=== PATIENT | female | born 1970 | race African-American/Black ===

== ENCOUNTER 2022-12-24 13:47 | Emergency (ER) | payer MEDICAID ==
[~2022-12-24] VITALS: Ht 170.2 cm; Wt 90.9 kg
[~2022-12-24 13:47] MED LIST: AMLO-257 PO; ASPI81 PO; METO25 PO
[2022-12-24 13:56] VITALS: TEMP 97.9
[2022-12-24] MEDS ORDERED: AmLODIPine BESYLATE 10 MG TABLET PO ONE (14:15)
[2022-12-24] MEDS ORDERED: ACETAMINOPHEN 500 MG TABLET PO ONE (14:15)
[2022-12-24 14:36] LABS: BASOPHILS % (AUTO) 0.9 % (0.0-2.0); EOSINOPHILS % (AUTO) 2.4 % (1.0-6.0); HEMATOCRIT 40.1 % (36-46); HEMOGLOBIN 13.2 g/dL (12.0-16.0); LYMPHOCYTES # (AUTO) 2.7 K/uL (1.0-4.8); LYMPHOCYTES % (AUTO) 35.1 % (22.0-44.0); MEAN CORPUSCULAR HEMOGLOBIN 29.1 pg (26.0-34.0); MEAN CORPUSCULAR HGB CONC 32.9 G/dL (31.0-37.0); MEAN CORPUSCULAR VOLUME 89 fL (80-100); MONOCYTES # (AUTO) 0.7 K/uL (0.1-1.0); MONOCYTES % (AUTO) 8.9 % (2.0-9.0); NEUTROPHILS % (AUTO) 52.7 % (40.0-70.0); PLATELET COUNT (AUTO) 419 K/uL (150-450); RED BLOOD CELL COUNT(AUTO) 4.53 MIL/uL (4.00-5.20); RED CELL DISTRIBUTION WIDTH 13.9 % (11.5-14.5); WHITE BLOOD COUNT (AUTO) 7.6 K/uL (4.5-11.0)
[2022-12-24 14:40] LABS: ANION GAP 12 mmol/L (8-16); CALCIUM, TOTAL 9.3 mg/dL (8.8-10.5); CARBON DIOXIDE 24 mmol/L (22-29); CHLORIDE 97 mmol/L (98-107); GLOMERULAR FILTR. RATE CALC > 60 mL/min (>60); GLUCOSE,RANDOM 115 mg/dL (70-110); POTASSIUM 3.7 mmol/L (3.5-5.1); SODIUM SERUM 133 mmol/L (136-145); UREA NITROGEN, BLOOD 17 mg/dL (7-18)
[2022-12-24 14:42] LABS: PROTHROMBIN TIME 10.4 SEC (9.4-11.6)
[2022-12-24 14:45] LABS: TROPONIN I-HIGH SENSITIVITY 6 ng/L (<51)
[2022-12-24 14:46] LABS: ALANINE AMINOTRANSFERASE 21 U/L (12-78); ALBUMIN 3.7 g/dL (3.4-5.0); ALKALINE PHOSPHATASE 109 U/L (46-116); ASPARTATE AMINOTRANSFERASE 24 U/L (15-37); TOTAL PROTEIN, SERUM 8.4 g/dL (6.4-8.2)
[2022-12-24 14:46] LABS: APPEARANCE,URINE CLEAR (CLEAR); BILIRUBIN,URINE NEGATIVE (NEGATIVE); COLOR,URINE COLORLESS (YELLOW); GLUCOSE, URINE (UA) NEGATIVE (NEGATIVE); KETONES,URINE NEGATIVE (NEGATIVE); LEUKOCYTE ESTERASE ,URINE NEGATIVE (NEGATIVE); NITRATE,URINE NEGATIVE (NEGATIVE); OCCULT BLOOD,URINE NEGATIVE (NEGATIVE); PROTEIN,URINE NEGATIVE (NEGATIVE); SPECIFIC GRAVITIY, URINE 1.005 (1.003-1.030); UROBILINOGEN,URINE <=1.0 mg/dL (<=1.0)
[2022-12-24 14:50] LABS: B-TYPE NATRIURETIC PEPTIDE 100 pg/mL (0-100)
[2022-12-24] MEDS ORDERED: AMLO-257 PO (17:22)
[2022-12-24 17:38] VITALS: BP 168/92; PULSE 75; RESP 16
[2022-12-24 17:38] LABS: TROPONIN I-HIGH SENSITIVITY 8 ng/L (<51)
== END 2022-12-24 17:39 | disposition home or self-care (01) ==
LOC: EMS 13:47
DX: R07.89 Other chest pain (principal); I16.1 Hypertensive emergency
CPT/HCPCS: 71045; 80053; 81003; 83880; 84484; 85025; 85610; 85730; 93005; 99285; 36415-L1; 36415-TC

== ENCOUNTER 2023-04-19 19:30 | Emergency (ER) | payer MEDICAID ==
[~2023-04-19] VITALS: Ht 170.2 cm; Wt 100.0 kg
[2023-04-19 19:31] VITALS: TEMP 97.8
[2023-04-19] MEDS ORDERED: SODIUM CHLORIDE 0.9% 1,000 ML IV ONE (20:00)
[2023-04-19 20:03] LABS: BASOPHILS % (AUTO) 1.3 % (0.0-2.0); EOSINOPHILS % (AUTO) 4.4 % (1.0-6.0); HEMATOCRIT 39.8 % (36-46); HEMOGLOBIN 13.5 g/dL (12.0-16.0); LYMPHOCYTES # (AUTO) 3.5 K/uL (1.0-4.8); LYMPHOCYTES % (AUTO) 56.7 % (22.0-44.0); MEAN CORPUSCULAR HEMOGLOBIN 30.4 pg (26.0-34.0); MEAN CORPUSCULAR HGB CONC 33.9 G/dL (31.0-37.0); MEAN CORPUSCULAR VOLUME 90 fL (80-100); MONOCYTES # (AUTO) 0.6 K/uL (0.1-1.0); NEUTROPHILS # (AUTO) 1.7 K/uL (1.8-7.7); NEUTROPHILS % (AUTO) 27.6 % (40.0-70.0); PLATELET COUNT (AUTO) 350 K/uL (150-450); RED BLOOD CELL COUNT(AUTO) 4.43 MIL/uL (4.00-5.20); RED CELL DISTRIBUTION WIDTH 14.8 % (11.5-14.5); WHITE BLOOD COUNT (AUTO) 6.1 K/uL (4.5-11.0)
[2023-04-19 20:19] LABS: COVID AG,FIA SOURCE NASAL SWAB
[2023-04-19 20:21] LABS: TROPONIN I-HIGH SENSITIVITY 8 ng/L (<51)
[2023-04-19 20:23] LABS: ALCOHOL, BLOOD (SERUM) < 3 mg/dL (0-10); ANION GAP 10 mmol/L (8-16); CALCIUM, TOTAL 9.1 mg/dL (8.8-10.5); CARBON DIOXIDE 26 mmol/L (22-29); CHLORIDE 101 mmol/L (98-107); CREATININE 0.85 mg/dL (0.60-1.30); GLOMERULAR FILTR. RATE CALC > 60 mL/min (>60); GLUCOSE,RANDOM 100 mg/dL (70-110); POTASSIUM 3.9 mmol/L (3.5-5.1); SODIUM SERUM 137 mmol/L (136-145); UREA NITROGEN, BLOOD 11 mg/dL (7-18)
[2023-04-19 20:28] LABS: ALANINE AMINOTRANSFERASE 26 U/L (12-78); ALBUMIN 3.9 g/dL (3.4-5.0); ALKALINE PHOSPHATASE 87 U/L (46-116); ASPARTATE AMINOTRANSFERASE 25 U/L (15-37); BILIRUBIN,TOTAL 0.3 mg/dL (0.1-1.0); TOTAL PROTEIN, SERUM 8.6 g/dL (6.4-8.2)
[2023-04-19] MEDS ORDERED: OXYM15SP NASAL (20:34)
[2023-04-19] MEDS ORDERED: ROSU20TA73 PO (20:34)
[2023-04-19] MEDS ORDERED: CORICIDIN HBP PO (20:34)
[2023-04-19] MEDS ORDERED: MV-M1TAB77 PO (20:34)
[2023-04-19 20:45] LABS: INFLUENZA TYPE A NEGATIVE FOR TYPE A (NEGATIVE); INFLUENZA TYPE B NEGATIVE FOR TYPE B (NEGATIVE)
[2023-04-19 20:47] LABS: SARS-COV2 (COVID) ANTIGEN,FIA Positive (Negative)
[2023-04-19 21:48] VITALS: BP 137/77; PULSE 59; RESP 18
== END 2023-04-19 22:25 | disposition home or self-care (01) ==
LOC: EMS 19:31
DX: U07.1 COVID-19 (principal); J06.9 Acute upper respiratory infection, unspecified; R07.89 Other chest pain; R19.7 Diarrhea, unspecified; I10 Essential (primary) hypertension; E78.00 Pure hypercholesterolemia, unspecified; F12.90 Cannabis use, unspecified, uncomplicated; Z87.891 Personal history of nicotine dependence
CPT/HCPCS: 99284; 96360; 87426; 80053; 84484; 85025; 87804; 36415; 93005; G0480; J7030

== ENCOUNTER 2023-11-05 17:56 | Emergency (ER) | payer MEDICAID ==
[~2023-11-05] VITALS: Ht 167.6 cm; Wt 90.9 kg
[~2023-11-05 17:56] MED LIST changes: +CORICIDIN HBP PO; +MV-M1TAB77 PO; +OXYM15SP NASAL; +ROSU20TA73 PO
[2023-11-05 18:20] VITALS: TEMP 98.8
[2023-11-05 18:25] LABS: COVID AG,FIA SOURCE NASAL SWAB
[2023-11-05 18:50] LABS: INFLUENZA TYPE A NEGATIVE FOR TYPE A (NEGATIVE); INFLUENZA TYPE B NEGATIVE FOR TYPE B (NEGATIVE); SARS-COV2 (COVID) ANTIGEN,FIA Negative (Negative)
[2023-11-05 19:12] LABS: BASOPHILS % (AUTO) 0.8 % (0.0-2.0); EOSINOPHILS % (AUTO) 0.7 % (1.0-6.0); HEMATOCRIT 42.6 % (36-46); HEMOGLOBIN 13.9 g/dL (12.0-16.0); LYMPHOCYTES # (AUTO) 1.9 K/uL (1.0-4.8); LYMPHOCYTES % (AUTO) 20.1 % (22.0-44.0); MEAN CORPUSCULAR HEMOGLOBIN 28.6 pg (26.0-34.0); MEAN CORPUSCULAR HGB CONC 32.6 G/dL (31.0-37.0); MEAN CORPUSCULAR VOLUME 88 fL (80-100); MONOCYTES # (AUTO) 0.8 K/uL (0.1-1.0); MONOCYTES % (AUTO) 8.7 % (2.0-9.0); NEUTROPHILS # (AUTO) 6.5 K/uL (1.8-7.7); NEUTROPHILS % (AUTO) 69.7 % (40.0-70.0); PLATELET COUNT (AUTO) 308 K/uL (150-450); RED BLOOD CELL COUNT(AUTO) 4.86 MIL/uL (4.00-5.20); RED CELL DISTRIBUTION WIDTH 14.3 % (11.5-14.5); WHITE BLOOD COUNT (AUTO) 9.4 K/uL (4.5-11.0)
[2023-11-05 19:23] LABS: ANION GAP 8 mmol/L (8-16); CALCIUM, TOTAL 9.6 mg/dL (8.8-10.5); CARBON DIOXIDE 26 mmol/L (22-29); CHLORIDE 100 mmol/L (98-107); CREATININE 0.86 mg/dL (0.60-1.30); GLOMERULAR FILTR. RATE CALC > 60 mL/min (>60); GLUCOSE,RANDOM 129 mg/dL (70-110); POTASSIUM 3.8 mmol/L (3.5-5.1); SODIUM SERUM 134 mmol/L (136-145); UREA NITROGEN, BLOOD 9 mg/dL (7-18)
[2023-11-05 19:30] LABS: TROPONIN I-HIGH SENSITIVITY 6 ng/L (<51)
[2023-11-05] MEDS: KETOROLAC TROMETHAMINE 60 MG/2 ML VIAL IM ONE (20:52)
[2023-11-05 21:22] VITALS: BP 123/75; PULSE 82; RESP 16
== END 2023-11-05 21:26 | disposition home or self-care (01) ==
LOC: EMS 18:04
DX: R07.89 Other chest pain (principal); G44.209 Tension-type headache, unspecified, not intractable; I10 Essential (primary) hypertension; F17.210 Nicotine dependence, cigarettes, uncomplicated; F12.90 Cannabis use, unspecified, uncomplicated; Z20.822 Contact with and (suspected) exposure to COVID-19
CPT/HCPCS: 99285; 71045; 87426; 80048; 84484; 85025; 87804; 36415; 93005; 96372; J1885

== ENCOUNTER 2024-01-05 12:10 | Emergency (ER) | payer MEDICAID ==
[~2024-01-05] VITALS: Ht 167.6 cm; Wt 105.5 kg
[2024-01-05 12:25] VITALS: BP 112/85; PULSE 94; RESP 18; TEMP 98.8; O2SAT 100
[2024-01-05] MEDS ORDERED: LOTREL PO (12:25)
[2024-01-05] MEDS ORDERED: CHL25 PO (12:25)
[2024-01-05 13:18] LABS: BASOPHILS % (AUTO) 1.2 % (0.0-2.0); EOSINOPHILS % (AUTO) 5.1 % (1.0-6.0); HEMOGLOBIN 14.1 g/dL (12.0-16.0); LYMPHOCYTES # (AUTO) 2.9 K/uL (1.0-4.8); LYMPHOCYTES % (AUTO) 34.5 % (22.0-44.0); MEAN CORPUSCULAR HEMOGLOBIN 29.6 pg (26.0-34.0); MEAN CORPUSCULAR HGB CONC 33.5 G/dL (31.0-37.0); MEAN CORPUSCULAR VOLUME 88 fL (80-100); MONOCYTES # (AUTO) 0.7 K/uL (0.1-1.0); MONOCYTES % (AUTO) 8.7 % (2.0-9.0); NEUTROPHILS # (AUTO) 4.3 K/uL (1.8-7.7); NEUTROPHILS % (AUTO) 50.5 % (40.0-70.0); PLATELET COUNT (AUTO) 408 K/uL (150-450); RED BLOOD CELL COUNT(AUTO) 4.75 MIL/uL (4.00-5.20); RED CELL DISTRIBUTION WIDTH 15.3 % (11.5-14.5); WHITE BLOOD COUNT (AUTO) 8.5 K/uL (4.5-11.0)
[2024-01-05 13:30] LABS: ANION GAP 10 mmol/L (8-16); CALCIUM, TOTAL 10.1 mg/dL (8.8-10.5); CARBON DIOXIDE 26 mmol/L (22-29); CHLORIDE 95 mmol/L (98-107); CREATININE 0.97 mg/dL (0.60-1.30); GLOMERULAR FILTR. RATE CALC > 60 mL/min (>60); GLUCOSE,RANDOM 108 mg/dL (70-110); POTASSIUM 4.4 mmol/L (3.5-5.1); SODIUM SERUM 131 mmol/L (136-145); UREA NITROGEN, BLOOD 14 mg/dL (7-18)
[2024-01-05 13:34] LABS: TROPONIN I-HIGH SENSITIVITY 6 ng/L (<51)
[2024-01-05 16:39] LABS: THYROID STIMULATING HORMONE 0.58 uIU/mL (0.36-3.74)
== END 2024-01-05 17:36 | disposition left against medical advice (07) ==
LOC: EMS 12:10
DX: R00.2 Palpitations (principal); I10 Essential (primary) hypertension; F17.210 Nicotine dependence, cigarettes, uncomplicated; F12.90 Cannabis use, unspecified, uncomplicated
CPT/HCPCS: 80048; 83735; 84443; 84484; 85025; 93005; 99284